=== PATIENT | female | born 1945 | race Asian ===

== ENCOUNTER 2022-12-20 13:00 | Emergency (ER) | payer OTHER ==
[~2022-12-20] VITALS: Ht 152.4 cm; Wt 72.6 kg
[2022-12-20 13:00] VITALS: BP 119/74; TEMP 98.1
[2022-12-20 13:52] LABS: PLATELET COUNT 237 K/uL (152-353)
[2022-12-20 14:02] LABS: POTASSIUM 4.5 mmol/L (3.6-5.2)
[2022-12-20] MEDS ORDERED: ASPIRIN/ENTERIC81 MG PO (16:04)
[2022-12-20] MEDS ORDERED: FURO40TA93 PO (16:05)
[2022-12-20] MEDS ORDERED: LIPITOR80 MG PO (16:05)
[2022-12-20] MEDS ORDERED: GLYCERIN ADULT2 GM PR (16:07)
[2022-12-20] MEDS ORDERED: METO25TA4 PO (16:08)
[2022-12-20] MEDS ORDERED: MILK OF MA400 MG/5 M PO (16:09)
[2022-12-20] MEDS ORDERED: TRAZ50TA36 PO (16:10)
[2022-12-20] MEDS ORDERED: TYLENOL325 MG PO ×2 (16:11→16:12)
[2022-12-20] MEDS ORDERED: XARELTO10 MG PO (16:12)
[2022-12-21] MEDS ORDERED: ACET-206 PO (10:06)
[2022-12-21] MEDS ORDERED: TRAZ50TA36 PO (10:07)
== END 2022-12-20 14:31 | disposition other institution (70) ==
LOC: ED 13:15
PROVIDERS: Family Medicine
DX: S86.912A Strain of unspecified muscle(s) and tendon(s) at lower leg level, left leg, initial encounter (principal); X58.XXXA Exposure to other specified factors, initial encounter; R06.02 Shortness of breath
CPT/HCPCS: 80053; 85027; 87635; 93005; 99283; U0003